=== PATIENT | male | born 1955 | race Caucasian/White ===

== ENCOUNTER 2017-03-25 02:54 | Emergency (ER) | payer OTHER ==
[~2017-03-25] VITALS: Ht 175.3 cm; Wt 78.0 kg
[~2017-03-25 02:54] MED LIST: AZO95TAB3 PO; CIAL10TA PO; HYDR-3129 PO; LEVA500T PO; PYRI200T4 PO; RANI150 PO
[2017-03-25 03:05] VITALS: BP 171/92; PULSE 76; RESP 18; O2SAT 98
[2017-03-25] MEDS ORDERED: CIAL10TA PO (03:14)
[2017-03-25] MEDS ORDERED: ZANT150T2 PO (03:14)
[2017-03-25 03:15] VITALS: BP 174/89; PULSE 60; RESP 16; O2SAT 99
[2017-03-25] MEDS ORDERED: SODIUM CHLOR 0.9% 1000 ML INJ 1,000 ML IV ONE ×2 (03:20→04:45)
[2017-03-25] MEDS ORDERED: SODIUM CHLORIDE 0.9% FLUSH 10 ML FLUSH IVF PRN (03:30)
[2017-03-25] MEDS ORDERED: KETOROLAC TROMETHAMINE 30 MG/ML (IVP) VIAL IVP ONE (03:30)
[2017-03-25] MEDS ORDERED: HYDROmorphone HCL PF 1 MG/ML VIAL IVS ONE ×2 (03:30→04:45)
[2017-03-25] MEDS ORDERED: ONDANSETRON HCL 4 MG/2 ML VIAL IVP ONE (03:30)
[2017-03-25 03:43] LABS: AUTOMATED NEUTROPHIL # 4.9 TH/MM3 (1.8-7.7); BASOPHIL % 0.4 % (0.0-2.0); EOSINOPHIL # 0.1 TH/MM3 (0-0.4); EOSINOPHIL % 1.3 % (0.0-4.0); HEMATOCRIT 41.2 % (39.0-51.0); HEMO FLAGS DIFF FINAL; LYMPH % 18.4 % (9.0-44.0); LYMPHOCYTE # 1.2 TH/MM3 (1.0-4.8); MEAN CORPUSCULAR HEMOGLOBIN 30.5 PG (27.0-34.0); MEAN CORPUSCULAR HGB CONC 33.9 % (32.0-36.0); MONO % 7.4 % (0.0-8.0); NEUT % 72.5 % (16.0-70.0); PLATELET COUNT 260 TH/MM3 (150-450); RED BLOOD COUNT 4.58 MIL/MM3 (4.50-5.90); RED CELL DISTRIBUTION WIDTH 13.5 % (11.6-17.2); WHITE BLOOD COUNT 6.7 TH/MM3 (4.0-11.0)
--- NOTE | 2017-03-25 04:08 | PD ---
HPI Chief Complaint: Flank/Kidney Pain Time Seen by Provider: 03:20 Travel History International Travel<30 days: No Contact w/Intl Traveler<30days: No Traveled to known affect area: No History of Present Illness HPI This is a 61-year-old male with no past medical history, presents today with complaints severe right sided flank pain with radiation to his right lower groin area. The patient reports sudden onset while sleeping. He denies any previous history of such. He reports associated nausea with no vomiting. The patient denies any dysuria or dark-colored urine. Patient has no history of kidney stones. There is no reported fevers, chills. PFSH Past Medical History Genitourinary: Yes (THIS VISIT 03/21/15) Past Surgical History Cholecystectomy: Yes Social History Alcohol Use: No Tobacco Use: No Substance Use: No Allergies-Medications (Allergen,Severity, Reaction): Coded Allergies: Penicillin (Unverified Allergy, Severe, HIVES, 03/25/17) Reported Meds & Prescriptions Reported Meds & Active Scripts Active Zofran Odt (Ondansetron Odt) 4 Mg Tab 4 Mg SL Q6HR PRN Lortab (Hydrocodone-Acetaminophen) 5-325 Mg Tab 1 Tab PO Q6H PRN Reported Cialis (Tadalafil) 10 Mg Tab 10 Mg PO DAILY PRN Do not exceed 1 dose/day. Zantac (Ranitidine HCl) 150 Mg Tab 150 Mg PO DAILY Review of Systems Except as stated in HPI: all other systems reviewed are Neg General / Constitutional: No: Fever, Chills HENT: No: Headaches, Lightheadedness Cardiovascular: No: Chest Pain or Discomfort, Palpitations Respiratory: No: Cough, Shortness of Breath Gastrointestinal: Positive: Nausea, Abdominal Pain (flank radiating to her lower abdominal area.), No: Vomiting, Diarrhea Genitourinary: No: Dysuria, Hematuria, Decreased Urinary Output Musculoskeletal: Positive: Pain (right flank pain), No: Weakness Neurologic: No: Weakness, Dizziness, Headache Physical Exam Narrative GENERAL: Well-nourished, well-developed patient, in obvious discomfort. SKIN: Focused skin assessment warm/dry. HEAD: Normocephalic/atraumatic. EYES: No scleral icterus. No injection or drainage. NECK: Supple, trachea midline. CARDIOVASCULAR: Regular rate and rhythm without murmurs, gallops, or rubs. RESPIRATORY: Breath sounds equal bilaterally. No accessory muscle use. GASTROINTESTINAL: Abdomen soft, non-tender, nondistended. Subjective pain from his flank rating to his right groin area. MUSCULOSKELETAL: No cyanosis, or edema. BACK: Subjective sharp stabbing pain in right flank. No CVA tenderness elicited on exam. NEUROLOGICAL: Awake and alert. Cranial nerves II through XII intact. Motor grossly within normal limits. Five out of 5 muscle strength in all muscle groups. Normal speech. Data Data Last Documented VS Vital Signs Date Time Temp Pulse Resp B/P Pulse Ox O2 Delivery O2 Flow Rate FiO2 03/25/17 03:15 60 16 174/89 99 Room Air Orders Complete Blood Count With Diff (03/25/17 03:20) Basic Metabolic Panel (Bmp) (03/25/17 03:20) Urinalysis - C+S If Indicated (03/25/17 03:20) Ecg Monitoring (03/25/17 03:20) Iv Access Insert/Monitor (03/25/17 03:20) Ketorolac Inj (Toradol Inj) (03/25/17 03:30) Ondansetron Inj (Zofran Inj) (03/25/17 03:30) Sodium Chloride 0.9% Flush (Ns Flush) (03/25/17 03:30) Sodium Chlor 0.9% 1000 Ml Inj (Ns 1000 M (03/25/17 03:20) Hydromorphone Pf Inj (Dilaudid Pf Inj) (03/25/17 03:30) Hydromorphone Pf Inj (Dilaudid Pf Inj) (03/25/17 04:45) Sodium Chlor 0.9% 1000 Ml Inj (Ns 1000 M (03/25/17 04:45) Ct Abd/Pel W/O Iv Contrast (03/25/17 05:09) Ondansetron Inj (Zofran Inj) (03/25/17 05:30) Prochlorperazine Inj (Compazine Inj) (03/25/17 05:45) Labs Laboratory Tests Test 03/25/17 03/25/17 03:30 04:30 White Blood Count 6.7 TH/MM3 Red Blood Count 4.58 MIL/MM3 Hemoglobin 13.9 GM/DL Hematocrit 41.2 % Mean Corpuscular Volume 90.0 FL Mean Corpuscular Hemoglobin 30.5 PG Mean Corpuscular Hemoglobin 33.9 % Concent Red Cell Distribution Width 13.5 % Platelet Count 260 TH/MM3 Mean Platelet Volume 8.0 FL Neutrophils (%) (Auto) 72.5 % Lymphocytes (%) (Auto) 18.4 % Monocytes (%) (Auto) 7.4 % Eosinophils (%) (Auto) 1.3 % Basophils (%) (Auto) 0.4 % Neutrophils # (Auto) 4.9 TH/MM3 Lymphocytes # (Auto) 1.2 TH/MM3 Monocytes # (Auto) 0.5 TH/MM3 Eosinophils # (Auto) 0.1 TH/MM3 Basophils # (Auto) 0.0 TH/MM3 CBC Comment DIFF FINAL Differential Comment Sodium Level 141 MEQ/L Potassium Level 4.2 MEQ/L Chloride Level 107 MEQ/L Carbon Dioxide Level 28.8 MEQ/L Anion Gap 5 MEQ/L Blood Urea Nitrogen 13 MG/DL Creatinine 1.45 MG/DL Estimat Glomerular Filtration 49 ML/MIN Rate Random Glucose 156 MG/DL Calcium Level 8.7 MG/DL Urine Color YELLOW Urine Turbidity HAZY Urine pH 5.5 Urine Specific Gove 1.024 Urine Protein TRACE mg/dL Urine Glucose (UA) NEG mg/dL Urine Ketones NEG mg/dL Urine Occult Blood MOD Urine Nitrite NEG Urine Bilirubin NEG Urine Urobilinogen LESS THAN 2.0 MG/DL Urine Leukocyte Esterase NEG Urine RBC 26 /hpf Urine WBC 2 /hpf Urine Squamous Epithelial <1 /hpf Cells Urine Amorphous Sediment RARE Urine Mucus FEW /lpf Microscopic Urinalysis Comment CULT NOT INDICATED MDM Medical Decision Making Medical Screen Exam Complete: Yes Emergency Medical Condition: Yes Differential Diagnosis Ureteral calculus versus appendicitis versus colitis versus muscular skeletal strain. Narrative Course 61-year-old male presents with right sided flank pain with associated nausea vomiting. The patient has no previous history of pain. Patient had hematuria on urinalysis. CT scan of the abdomen pelvis showed a right sided 3-4 mm stone at the right UPJ. The patient was noted to have renal insufficiency. He was also noted to have hyperglycemia. He states he has not seen his primary care doctor in [place] for quite some time. I have given him information on the [facility]. He'll also be given the name of Dr. Castellon who is on-call for urology. He is instructed to follow up with the urologist, call for an appointment. He'll be instructed to strain his urine and save anything that looks like a piece of sand or small stone. Diagnosis Primary Impression: Renal colic on right side Additional Impressions: Renal insufficiency Hyperglycemia Referrals: Sourav Castlelon MD Additional Instructions: Strain urine and save anything that looks like sand or stone and bring with you to the urologist. Follow up with urologist, call for an appointment. Make an appointment with primary care physician for evaluation of your kidney function and elevated blood sugar. Med/Other Pt SpecificInfo: Prescription(s) given Scripts Ondansetron Odt (Zofran Odt)4 Mg Tab4 Mg SL Q6HR PRN (Nausea/Vomiting) #14 TAB Ref 0 Prov:Jeremias Allred MD 03/25/17 Hydrocodone-Acetaminophen (Lortab)5-325 Mg Tab1 Tab PO Q6H PRN (PAIN) #15 TAB Ref 0 Prov:Jeremias Allred MD 03/25/17 Disposition: 01 DISCHARGE HOME Condition: Stable Jeremias Allred MD Mar 25, 2017 04:08
[2017-03-25 04:16] LABS: BICARBONATE 28.8 MEQ/L (21.0-32.0)
[2017-03-25 04:22] LABS: POTASSIUM 4.2 MEQ/L (3.5-5.1)
[2017-03-25 04:56] LABS: BLOOD, URINE MOD (NEG); COMMENT (UR) CULT NOT INDICATED; CULTURE IF INDICATED CULT NOT INDICATED; GLUCOSE,URINE NEG (NEG); KETONE, URINE NEG (NEG); MUCUS URINE FEW /lpf (OCC); NITRITE,URINE NEG (NEG); PH, URINE 5.5 (5.0-8.5); SQUAMOUS EPITHELIAL CELL URINE <1 /hpf (0-5); URINE COLOR YELLOW (YELLW/STRAW)
[2017-03-25] MEDS ORDERED: ONDANSETRON HCL 4 MG/2 ML VIAL IV PUSH ONE (05:30)
--- NOTE | 2017-03-25 05:36 | RADRPT ---
EXAM DATE/TIME: 03/25/2017 05:24 [facility] COMPARISON: CT ABDOMEN & PELVIS W CONTRAST, March 21, 2015, 14:09. INDICATIONS : Right flank pain with nausea and vomiting. ORAL CONTRAST: No oral contrast ingested. RADIATION DOSE: 7.77 CTDIvol (mGy) MEDICAL HISTORY : Benign prostatic hyperplasia, (BPH). SURGICAL HISTORY : Cholecystectomy. ENCOUNTER: Initial ACUITY: 1 day PAIN SCALE: 10/10 LOCATION: Right flank TECHNIQUE: Volumetric scanning of the abdomen and pelvis was performed. Using automated exposure control and ad justment of the mA and/or kV according to patient size, radiation dose was kept as low as reasonably achievable to obtain optimal diagnostic quality images. DICOM format image data is available electro nically for review and comparison. FINDINGS: LOWER LUNGS: The visualized lower lungs are clear. LIVER: Homogeneous density without lesion. There is no dilation of the biliary tree. Cholecystectomy. SPLEEN: Normal size without lesion. PANCREAS: Within normal limits. KIDNEYS: Right-sided hydronephrosis and hydroureter leading to a distal ureteral calculus measuring 3-4 mm. No obstructing left-sided renal calculi. No masses identified.. ADRENAL GLANDS: Within normal limits. VASCULAR: There is no aortic aneurysm. BOWEL/MESENTERY: The stomach, small bowel, and colon demonstrate no acute abnormality. There is no free intraperitone al air or fluid. ABDOMINAL WALL: Within normal limits. RETROPERITONEUM: There is no lymphadenopathy. BLADDER: No wall thickening or mass. REPRODUCTIVE: Within normal limits. INGUINAL: There is no lymphadenopathy or hernia. MUSCULOSKELETAL: Within normal limits for patient age. CONCLUSION: 1. Mild obstructive uropathy on the right secondary distal ureteral calculus measuring 3-4 mm. 2. Status post cholecystectomy. Bertram Jones MD on March 25, 2017 at 5:32 Board Certified Radiologist. This report was verified electronically.
[2017-03-25] MEDS ORDERED: PROCHLORPERAZINE INJ 10 MG/2 ML VIAL IV PUSH ONE (05:45)
[2017-03-25] MEDS ORDERED: HYDR-3533 PO (06:49)
[2017-03-25] MEDS ORDERED: ZOFR4TAB3 SL (06:49)
[2017-03-25 07:10] VITALS: BP 153/77
== END 2017-03-25 07:28 | disposition home or self-care (01) ==
LOC: NEPE 02:54
DX: N23 Unspecified renal colic (principal); N28.9 Disorder of kidney and ureter, unspecified; R73.9 Hyperglycemia, unspecified
CPT/HCPCS: 74176; 80048; 81001; 85025; 96361; 96374; 96375; 96376; 99285; J0780; J1170; J1885; J2405; J7030